=== PATIENT | male | born 1945 | race Two or more races ===

== ENCOUNTER 2018-11-10 09:31 | Emergency (ER) | payer OTHER ==
[~2018-11-10] VITALS: Ht 193 cm; Wt 105.2 kg
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
--- NOTE | 2018-11-10 10:33 | NUR ---
ED Nurse Note: Pt down to X-ray for imaging.
--- NOTE | 2018-11-10 10:45 | NUR ---
ED Nurse Note: Pt back from CT. No acute distress.
[2018-11-10 11:16] VITALS: BP 151/79
[2018-11-10] MEDS ORDERED: TYLENOL EXTRA500 MG ORAL (11:25)
[2018-11-10] MEDS ORDERED: LIDODERM700 M1 TOPIC (11:25)
[2018-11-10] MEDS ORDERED: ROBAXIN-750750 MG PO (11:25)
[2018-11-10 11:30] VITALS: BP 151/79
--- NOTE | 2018-11-10 11:30 | NUR ---
ER DISCHARGE NOTE: Patient is cleared to be discharged per ERMD, pt is aox4, on room air, with stable vital signs. pt was given dc and prescription instructions, pt was able to verbalize understanding, pt id band removed. pt is able to ambulate with steady gait. pt took all belongings.
--- NOTE | 2018-11-10 12:01 | Diagnostic Imaging Report ---
Thoracic Spine, 3 views INDICATION: Pain COMPARISON: None FINDINGS: Multiple views of the thoracic spine are obtained. Vertebral body heights and disk spaces are preserved. Alignment is anatomic. The paraspinal soft tissues are within normal limits. IMPRESSION: No acute fracture or subluxation.
--- NOTE | 2018-11-10 12:04 | Diagnostic Imaging Report ---
Lumbar Spine, 3 views INDICATION: Pain COMPARISON: None FINDINGS: Multiple views of the lumbar spine are obtained. Moderate disc height loss L2-L3 to L5-S1. Large anterior osteophytes. Bilateral facet arthropathy. Vertebral body heights and disk spaces are otherwise preserved. Alignment is anatomic. The paraspinal soft tissues are within normal limits. IMPRESSION: No acute fracture or subluxation. Disc height loss as outlined above.
== END 2018-11-10 11:30 | disposition home or self-care (01) ==
LOC: EDBD 09:31 → EMR 10:30
DX: M54.5 Low back pain (principal); M25.511 Pain in right shoulder; V43.52XA Car driver injured in collision with other type car in traffic accident, initial encounter; Y92.410 Unspecified street and highway as the place of occurrence of the external cause; E11.9 Type 2 diabetes mellitus without complications; I10 Essential (primary) hypertension
CPT/HCPCS: 72020; 72070; 99284